=== PATIENT | female | born 1980 | race Asian ===

== ENCOUNTER 2025-09-15 14:14 | Emergency (ER) | payer BC ==
[2025-09-15 16:20] LABS: #Basophils 0.06 10x3/uL (0.0-0.2); #Eosinophils 0.14 10x3/uL (0.0-0.7); #Monocytes 0.75 10x3/uL (0.11-0.59); #Neutrophils 4.67 10x3/uL (1.40-6.50); %Basophils 0.8 % (0.0-1.0); %Eosinophils 1.8 % (0.0-10.0); %Lymphocytes 26.2 % (21.0-51.0); %Monocytes 9.8 % (0.0-10.0); %Neutrophils 61.3 % (42.0-75.0); Hematocrit 39.1 % (36.0-47.0); Hemoglobin 12.2 g/dL (12.0-16.0); Mean Corpuscular Hemoglobin 20.6 pg (27.0-31.0); Mean Corpuscular Volume 66.0 fL (78.0-98.0); Platelet Count 308 10x3/uL (130-400); Red Blood Cell (RBC) Count 5.92 mill/uL (4.20-5.40); White Blood Cell (WBC) Count 7.63 10x3/uL (4.8-10.8)
[2025-09-15 16:21] LABS: BHCG - Serum Negative (NEGATIVE); Pregs Control Background? CLEAR/WHITE (CLR/WHITE); Pregs Control Bar Appear? YES (CONTROL BAR)
[2025-09-15 16:36] LABS: ALT (SGPT) 18 U/L (Less than 34); AST (SGOT) 37 U/L (11-34); Albumin 4.3 g/dL (3.1-4.5); Alkaline Phosphatase 32 U/L (40-110); Anion Gap 15 mmol/L (10-20); Anisocytosis SLIGHT = 6-15 cells HPF (0-5); BUN (Urea Nitrogen) 18 mg/dL (7.0-18.7); Bilirubin, Total 0.6 mg/dL (0.3-1.2); Calc. Creatinine Clearance 0 mL/min (70-130); Calcium 9.3 mg/dL (7.8-10.44); Carbon Dioxide 25 mmol/L (22-29); Chloride 103 mmol/L (98-107); Globulin 3.2 g/dL (2.4-3.5); Glucose 85 mg/dL (70-105); Macrocytosis SLIGHT = 6-15 cells HPF (0-5); Microcytosis MODERATE=15-30 cells HPF (0-5); Ovalocytes SLIGHT = 2-5 cells HPF (0-1); Platelet Adequacy Comment Platelets Normal; Polychromasia SLIGHT = 2-3 cells HPF (0-2); Potassium 3.6 mmol/L (3.5-5.1); Sodium 139 mmol/L (136-145); Target Cells SLIGHT = 2-5 cells HPF (0-1)
== END 2025-09-15 17:10 | disposition home or self-care (01) ==
LOC: ERS 14:14
DX: S00.33XA Contusion of nose, initial encounter (principal); S20.219A Contusion of unspecified front wall of thorax, initial encounter; V99.XXXA Unspecified transport accident, initial encounter
CPT/HCPCS: 70486; 71250; 80053; 84484; 84703; 85025; 93005